=== PATIENT | male | born 1940 | race Caucasian/White ===

== ENCOUNTER → 2020-02-23 14:07 | Outpatient (BNVA) | payer MEDICARE, SELFPAY | PROVIDERS: Family Provider Nurse Practitioner Family; PCP Family Medicine; Visit Provider Internal Medicine Critical Care Medicine | DX: J84.10 Pulmonary fibrosis, unspecified (principal); R06.02 Shortness of breath | CPT/HCPCS: 80053; 85025; 85651; 86038; 86140; 86235; 86431 ==

== ENCOUNTER 2020-07-29 06:00 | Outpatient (RCR) | payer MEDICARE, SELFPAY | END 2020-08-11 23:59 | disposition home or self-care (01) | LOC: GPT 06:00 | PROVIDERS: PCP Family Medicine; Referring Provider Nurse Practitioner Family; Visit Provider Nurse Practitioner Family | DX: M54.5 Low back pain (principal); G89.29 Other chronic pain; M47.9 Spondylosis, unspecified; M81.0 Age-related osteoporosis without current pathological fracture | CPT/HCPCS: 97032; 97110; 97112; 97162; 97530 ==

== ENCOUNTER 2020-08-12 06:00 | Outpatient (RCR) | payer MEDICARE, SELFPAY | END 2020-09-11 23:59 | disposition home or self-care (01) | LOC: GPT 06:00 | PROVIDERS: PCP Family Medicine; Referring Provider Nurse Practitioner Family; Visit Provider Nurse Practitioner Family | DX: M54.5 Low back pain (principal); G89.29 Other chronic pain; M47.9 Spondylosis, unspecified; M81.0 Age-related osteoporosis without current pathological fracture | CPT/HCPCS: 97032; 97110; 97112; 97116; 97164; 97530 ==

== ENCOUNTER 2020-09-12 06:00 | Outpatient (RCR) | payer MEDICARE, SELFPAY | END 2020-10-12 23:59 | disposition home or self-care (01) | LOC: GPT 06:00 | PROVIDERS: PCP Family Medicine; Referring Provider Nurse Practitioner Family; Visit Provider Nurse Practitioner Family | DX: M54.5 Low back pain (principal); G89.29 Other chronic pain; M47.9 Spondylosis, unspecified; M81.0 Age-related osteoporosis without current pathological fracture | CPT/HCPCS: 97110; 97112; 97116; 97164; 97530 ==

== ENCOUNTER 2021-11-21 06:00 | Outpatient (RCR) | payer MEDICARE, SELFPAY | END 2021-12-12 23:59 | disposition home or self-care (01) | LOC: GPT 06:00 | PROVIDERS: PCP Family Medicine; Visit Provider Nurse Practitioner Family | DX: R29.898 Other symptoms and signs involving the musculoskeletal system (principal); Z99.89 Dependence on other enabling machines and devices | CPT/HCPCS: 97110; 97112; 97162 ==

== ENCOUNTER 2021-12-13 06:00 | Outpatient (RCR) | payer MEDICARE, SELFPAY | END 2022-01-11 23:59 | disposition home or self-care (01) | LOC: GPT 06:00 | PROVIDERS: PCP Family Medicine; Visit Provider Nurse Practitioner Family | DX: R29.898 Other symptoms and signs involving the musculoskeletal system (principal); Z99.89 Dependence on other enabling machines and devices | CPT/HCPCS: 97110; 97112; 97116; 97164 ==

== ENCOUNTER 2022-01-12 06:00 | Outpatient (RCR) | payer MEDICARE, SELFPAY | END 2022-01-19 11:44 | disposition home or self-care (01) | LOC: GPT 06:00 | PROVIDERS: PCP Family Medicine; Visit Provider Nurse Practitioner Family | DX: R29.898 Other symptoms and signs involving the musculoskeletal system (principal); Z99.89 Dependence on other enabling machines and devices | CPT/HCPCS: 97110; 97112; 97535 ==

== ENCOUNTER 2022-09-06 06:00 | Outpatient (RCR) | payer MEDICARE, SELFPAY | END 2022-09-11 23:59 | disposition home or self-care (01) | LOC: GPT 06:00 | PROVIDERS: Visit Provider Nurse Practitioner Family | DX: M51.36 Other intervertebral disc degeneration, lumbar region (principal) | CPT/HCPCS: 97163 ==

== ENCOUNTER 2022-09-12 01:00 | Outpatient (RCR) | payer MEDICARE, SELFPAY | END 2022-10-12 23:59 | disposition home or self-care (01) | LOC: GPT 01:00 | PROVIDERS: Visit Provider Nurse Practitioner Family | DX: M51.36 Other intervertebral disc degeneration, lumbar region (principal) | CPT/HCPCS: 97110 ==

== ENCOUNTER 2022-10-13 06:00 | Outpatient (RCR) | payer MEDICARE, SELFPAY | END 2022-11-11 23:59 | disposition home or self-care (01) | LOC: GPT 06:00 | PROVIDERS: Visit Provider Nurse Practitioner Family | DX: M51.36 Other intervertebral disc degeneration, lumbar region (principal) | CPT/HCPCS: 97110; 97112; 97164; 97530; 97535 ==

== ENCOUNTER 2022-11-12 06:00 | Outpatient (RCR) | payer MEDICARE, SELFPAY | END 2022-12-12 23:59 | disposition home or self-care (01) | LOC: GPT 06:00 | PROVIDERS: Visit Provider Nurse Practitioner Family | DX: M51.36 Other intervertebral disc degeneration, lumbar region (principal) | CPT/HCPCS: 97110; 97112 ==